=== PATIENT | male | born 1995 | race Caucasian/White ===

== ENCOUNTER 2017-01-08 04:28 | Emergency (ER) | payer SELFPAY ==
[~2017-01-08] VITALS: Ht 152.4 cm; Wt 63.5 kg
[2017-01-08 04:32] VITALS: BP 86/43
--- NOTE | 2017-01-08 04:35 | NUR ---
PATIENT BIB ALS TO ER BED 8.
--- NOTE | 2017-01-08 04:55 | NUR ---
PT IS 21Y/M PT. BIBA TO ED WITH C/O ETOH. PER EMS; PT. BEEN DRINKING WITH FRIENDS, ALOC, RESPONSE TO PAIN, HYPOTENSIVE UPON ARRIVAL. LEFT AC #20 IV STARTED IN FIELD. PT INCONTINENT. NO MEDICAL HX PER EMS. NO SOB NOTED AT THIS TIME. GCS OF 8. VSS; PATIENT POSITIONED FOR COMFORT; HOB ELEVATED; BEDRAILS UP X2; BED DOWN. ER MD MADE AWARE OF PT STATUS. WILL CONTINUE TO CLOSELY MONITOR.
--- NOTE | 2017-01-08 04:55 | NUR ---
PATIENT BEING EVALUATED BY DR. LAM.
[2017-01-08 05:25] LABS: CALCIUM 7.5 mg/dL (8.5-10.1); CARBON DIOXIDE 27.2 mmol/L (21-32); CREATININE 0.9 mg/dL (0.7-1.3); POTASSIUM 4.2 mmol/L (3.5-5.1)
[2017-01-08 05:26] LABS: HEMATOCRIT 43.2 % (36-52); HEMOGLOBIN 14.1 g/dL (12.0-18.0); MEAN CORPUSCULAR HEMOGLOBIN 30 pg (27-31); MEAN CORPUSCULAR HGB CONC 33 g/dL (33-37); MEAN CORPUSCULAR VOLUME 91 fL (80-94); PLATELET COUNT (AUTO) 175 K/uL (140-450); RED BLOOD CELL COUNT(AUTO) 4.77 MIL/uL (4.20-6.10); RED CELL DISTRIBUTION WIDTH 11.7 % (11.6-13.7); WHITE BLOOD COUNT (AUTO) 7.1 K/uL (4.5-11.0)
[2017-01-08 05:31] LABS: ALBUMIN 3.9 g/dL (3.4-5.0); TOTAL BILIRUBIN 0.3 mg/dL (0.0-1.0); TOTAL PROTEIN, SERUM 7.2 g/dL (6.4-8.2)
[2017-01-08 05:35] LABS: EOSINOPHILS % (MANUAL) 4 % (0-4); LYMPHOCYTES % (MANUAL) 40 % (20-46); MONOCYTES % (MANUAL) 5 % (5-12); NEUTROPHILS % (MANUAL) 51 (43-65)
--- NOTE | 2017-01-08 06:16 | NUR ---
PT APPEARS TO BE RESTING IN BED COMFORTABLY. NO SOB NOTED. VS STABLE AT THIS TIME. WILL CONTINUE TO MONITOR.
[2017-01-08] MEDS ORDERED: ONDANSETRON 4 MG/2 ML VIAL IVP ONE (06:30)
[2017-01-08] MEDS ORDERED: NACL 0.9% 1,000 ML IV ONE ×2 (06:30)
[2017-01-08 06:46] LABS: AMPHETAMINE, URINE NEG. ng/ml (NEG <=1000); BARBITURATE, URINE NEG. ng/ml (NEG <=200); BENZODIAZEPINE, URINE NEG. ng/mL (NEG <=200); CANNABINOID, URINE NEG. ng/mL (NEG <=50); COCAINE, URINE NEG. ng/mL (NEG <=300); OPIATE, URINE NEG. ng/mL (NEG <=2000); PHENCYCLIDINE SCREEN,URINE NEG. ng/mL (NEG <=25)
--- NOTE | 2017-01-08 07:18 | NUR ---
ENDORSED REPORT TO CHELSEA GARCIA FOR TRANSFER OF CARE.
[2017-01-08 07:30] LABS: ACETAMINOPHEN 0.8 ug/ml (10-30)
--- NOTE | 2017-01-08 07:30 | NUR ---
MONEY COUNT W/ PBX/SECURITY AND NURSE.MONEY IN [employer]
[2017-01-08 07:35] LABS: SALICYLATE < 2.8 mg/dL (2.8-20.0)
[2017-01-08] MEDS ORDERED: NACL 0.9% 2,000 ML IV ONE (07:40)
--- NOTE | 2017-01-08 07:41 | NUR ---
RECIEVED PATIENT ASLEEP.CONTINUE TO MONITOR.
--- NOTE | 2017-01-08 07:46 | NUR ---
DR. LOVELACE MADE AWARE OF BP 88/49.WILL START IVF NSS 1L BOLUS. CONYINUE TO MONITOR
--- NOTE | 2017-01-08 08:25 | NUR ---
PATIENT MORE AWARE. WANTED TO GO HOME
--- NOTE | 2017-01-08 08:25 | NUR ---
REFUSING FARTHER TX.
[2017-01-08 08:30] VITALS: BP 112/58
--- NOTE | 2017-01-08 08:45 | NUR ---
PATIENT SIGNED AMA. AMBULATED STEADY GAIT. MONEY/WALLET FROM [employer] GIVEN BACK TO PATIENT.SECURITY,SKATE HOP PRESENT
== END 2017-01-08 08:45 | disposition left against medical advice (07) ==
LOC: MED 04:28 → EDBD 04:28 → MED 08:45
DX: F10.129 Alcohol abuse with intoxication, unspecified (principal); R41.82 Altered mental status, unspecified
CPT/HCPCS: 36415; 80053; 80305; 85025; 96361; 96374; 99284; C1758; G0480; G0482; J2405; J7030